=== PATIENT | female | born 1990 | race Caucasian/White ===

== ENCOUNTER 2017-02-23 10:46 | Inpatient (IN) | payer BC ==
[~2017-02-23] VITALS: Ht 157.5 cm; Wt 64.4 kg
[2017-02-23] MEDS ORDERED: KETOROLAC 30MG/ML VIAL IV STA (14:44)
[2017-02-23] MEDS ORDERED: SODIUM CHLORIDE 0.9% 1,000 ML IV ONE (14:44)
[2017-02-23] MEDS ORDERED: ONDANSETRON HCL 4MG/2ML VIAL IV STA (14:44)
[2017-02-23 15:15] LABS: HEMATOCRIT. 35.9 % (36.0-48.0); MEAN CORPUSCULAR HEMOGLOBIN 26.9 pg (28.0-32.0); MEAN CORPUSCULAR VOLUME 80.4 fL (81.0-99.0); MEAN PLATELET VOLUME 9.3 fl (7.4-10.4); PLATELET 161 x1000/uL (130-400); RED BLOOD CELL COUNT 4.46 mill/uL (4.2-5.4); RED CELL DISTRIBUTION WIDTH 15.4 % (11.6-14.6)
[2017-02-23 15:19] LABS: CHLORIDE 103 mEq/L (98-107)
[2017-02-23 15:28] LABS: CARBON DIOXIDE 23 mEq/L (21-32)
[2017-02-23 15:30] LABS: HCG SCREEN NEGATIVE; PLATELET ESTIMATE NORMAL
[2017-02-23 15:39] LABS: CLARITY URINE CLOUDY (CLEAR); COLOR URINE RED (YELLOW); GLUCOSE URINE NEGATIVE (NEGATIVE); KETONES URINE NEGATIVE (NEGATIVE); LEUKOCYTE ESTERASE URINE TRACE (NEGATIVE); NITRITE URINE NEGATIVE (NEGATIVE); OCCULT BLOOD URINE 3+ (NEGATIVE); PH URINE 6.5 (4.5-8.0); PROTEIN URINE 2+ (NEGATIVE); SPECIFIC GRAVITY URINE 1.007 (1.005-1.030); UROBILINOGEN URINE 0.2 E.U./dL (0.2-1.0)
[2017-02-23] MEDS ORDERED: METRONIDAZOLE 500 MG PREMIX 100 ML IV ONE (16:45)
[2017-02-23] MEDS ORDERED: LEVOFLOXACIN 500MG PREMIX 100 ML IV ONE (16:45)
[2017-02-23] MEDS ORDERED: CLONIDINE 0.1MG TABLET PO PRN (18:15)
[2017-02-23] MEDS ORDERED: DOCUSATE SODIUM 100MG CAPSULE PO PRN (18:15)
[2017-02-23] MEDS ORDERED: GUAIFENESIN 200MG/10ML SUGAR FREE UDC PO PRN (18:15)
[2017-02-23] MEDS ORDERED: DIPHENHYDRAMINE 50MG/ML VIAL IV PRN (18:15)
[2017-02-23] MEDS ORDERED: MAGNESIUM/ALUMINUM HYDROXIDE/SIMETHICONE 30ML UDC PO PRN (18:15)
[2017-02-23] MEDS ORDERED: TRAMADOL 50MG TABLET PO PRN (18:15)
[2017-02-23] MEDS ORDERED: NA PHOS,M-B/NA PHOS,DI-BA ENEMA 118ML PR PRN (18:15)
[2017-02-23] MEDS ORDERED: ACETAMINOPHEN 325MG TABLET PO PRN (18:15)
[2017-02-23] MEDS ORDERED: ZOLPIDEM TARTRATE 5MG TABLET PO PRN (18:15)
[2017-02-23] MEDS ORDERED: LORAZEPAM 2MG/ML CPJ IV PRN (18:15)
[2017-02-23] MEDS ORDERED: ONDANSETRON HCL 4MG/2ML VIAL IV PRN (18:15)
[2017-02-23 20:29] VITALS: BP 106/61
[2017-02-23] MEDS ORDERED: IPRATROPIUM/ALBUTEROL 0.5-3(2.5)MG/3ML NEB INH PRN (21:16)
[2017-02-23] MEDS: SODIUM CHLORIDE 0.9% 1,000 ML IV SCH (22:30)
[2017-02-23] MEDS: FAMOTIDINE 20MG/2ML VIAL IV SCH (22:30)
[2017-02-24] VITALS: BP 121/71
[2017-02-24] MEDS: METRONIDAZOLE 500 MG PREMIX 100 ML IV SCH ×3 (01:19→21:56)
[2017-02-24 04:00] VITALS: BP 110/70
[2017-02-24 08:00] VITALS: BP 110/64
[2017-02-24] MEDS: FAMOTIDINE 20MG/2ML VIAL IV SCH (09:26)
[2017-02-24 12:00] VITALS: BP 116/63
[2017-02-24 15:00] LABS: HEMATOCRIT. 32.7 % (36.0-48.0); HEMOGLOBIN. 11.1 g/dL (12.0-16.0); MEAN CORPUSCULAR VOLUME 79.9 fL (81.0-99.0); MEAN PLATELET VOLUME 9.2 fl (7.4-10.4); PLATELET 140 x1000/uL (130-400); RED BLOOD CELL COUNT 4.09 mill/uL (4.2-5.4); RED CELL DISTRIBUTION WIDTH 15.5 % (11.6-14.6)
[2017-02-24 15:21] LABS: CARBON DIOXIDE 26 mEq/L (21-32); CHLORIDE 102 mEq/L (98-107)
[2017-02-24 16:00] VITALS: BP 108/49
[2017-02-24 16:22] LABS: PLATELET ESTIMATE NORMAL
[2017-02-24] MEDS ORDERED: LEVOFLOXACIN 500MG PREMIX 100 ML IV SCH ×2 (17:00→21:00)
[2017-02-24] MEDS: SODIUM CHLORIDE 0.9% 1,000 ML IV SCH (17:17)
[2017-02-24] MEDS: KETOROLAC 15MG/ML VIAL IV PRN (19:15)
[2017-02-24 20:00] VITALS: BP 118/66
[2017-02-25] VITALS: BP 110/64
[2017-02-25] MEDS: FAMOTIDINE 20MG/2ML VIAL IV SCH ×2 (00:37→09:16)
[2017-02-25] MEDS: KETOROLAC 15MG/ML VIAL IV PRN (02:09)
[2017-02-25 04:00] VITALS: BP 116/64
[2017-02-25] MEDS: METRONIDAZOLE 500 MG PREMIX 100 ML IV SCH (04:21)
[2017-02-25] MEDS: SODIUM CHLORIDE 0.9% 1,000 ML IV SCH (05:05)
[2017-02-25 08:00] VITALS: BP 106/52
[2017-02-25] MEDS ORDERED: POTASSIUM CHLORIDE 20MEQ/PACKET PO NR (08:30)
[2017-02-25 09:45] LABS: HEMATOCRIT. 33.9 % (36.0-48.0); HEMOGLOBIN. 11.4 g/dL (12.0-16.0); MEAN CORPUSCULAR HEMOGLOBIN 27.1 pg (28.0-32.0); MEAN CORPUSCULAR VOLUME 80.3 fL (81.0-99.0); MEAN PLATELET VOLUME 8.7 fl (7.4-10.4); PLATELET 138 x1000/uL (130-400); RED BLOOD CELL COUNT 4.22 mill/uL (4.2-5.4); RED CELL DISTRIBUTION WIDTH 15.6 % (11.6-14.6)
[2017-02-25 10:01] LABS: CARBON DIOXIDE 26 mEq/L (21-32); CHLORIDE 102 mEq/L (98-107)
[2017-02-25 11:24] VITALS: BP 105/52
[2017-02-25 13:37] LABS: PLATELET ESTIMATE NORMAL
== END 2017-02-25 12:20 | disposition home or self-care (01) | DRG 392 ==
LOC: ER 11:25 → ENRESERV 17:01 → 6EST 17:41 → EDBEDREQ 17:43 → 6EST 21:04
PROVIDERS: ADMIT Internal Medicine; ATTEND Internal Medicine
DX: K52.9 Noninfective gastroenteritis and colitis, unspecified (principal); E44.0 Moderate protein-calorie malnutrition; E87.1 Hypo-osmolality and hyponatremia; N39.0 Urinary tract infection, site not specified; Z68.26 Body mass index [BMI] 26.0-26.9, adult
CPT/HCPCS: 36415; 74176; 80053; 81001; 81025; 83036; 83690; 84703; 85025; 87015; 87045; 87427; 87449; 96374; 96375; 99285; J1885; J1956; J2405; J3490; J7030; J7040